=== PATIENT | female | born 1980 | race Caucasian/White ===

== ENCOUNTER 2017-02-07 11:21 | Emergency (ER) | payer OTHER ==
--- NOTE | 2017-02-07 13:14 | DIAGNOSTIC IMAGING REPORT ---
PROCEDURE: XR CHEST 2 VIEW INDICATION: HEMOPTYSIS TECHNIQUE: PA and lateral views. COMPARISON: None. FINDINGS: Lungs are clear. Heart and mediastinum are normal. Thorax is normal. IMPRESSION: 1. Negative chest.
--- NOTE | 2017-02-07 14:16 | DIAGNOSTIC IMAGING REPORT ---
PROCEDURE: CT THORAX WITH CONTRAST INDICATION: Hemoptysis. Smoking history. TECHNIQUE: Only 65 ml of Isovue 300 injected intravenously as there was difficulty with IV site resulted in incomplete injection. No evidence of extravasation. Axial images were obtained of the entire thorax with sagittal and coronal reconstructions. COMPARISON: Comparison is made to chest x-ray earlier today (02/07/2017). FINDINGS: There is mild volume loss at the posterior lung bases. Lungs are otherwise clear. Heart and mediastinum are normal. Mild degenerate change of the thoracic spine. IMPRESSION: 1. Negative CT thorax. No evidence of mass or adenopathy. 2. Findings discussed with Dr. Stephen De La Cruz. All CT scans at this facility use dose modulation, iterative reconstruction, and/or weight-based dosing when appropriate to reduce radiation dose to as low as reasonably achievable.
--- NOTE | 2017-02-07 14:21 | ED CLINICAL REPORT ---
Clinical Report - Physicians/Mid Levels [facility] [address] [place] [address] 02/07/2017 11:23 Patient: TIFFANY ANGELO Time Seen: 11:44. Arrived- By private vehicle. Historian- patient. HISTORY OF PRESENT ILLNESS Chief Complaint: LOWER EXTREMITY PAIN and SWELLING. Severity is described as being moderate. The quality is noted to be burning and similar to prior episodes (tight). This started yesterday and is still present. It was abrupt in onset and has been constant ("tight, like I pulled a muscle"). Symptoms located in the area of the right knee and right leg. The patient has not had redness. No swelling. Patient denies an injury. Similar symptoms previously: Several times. Diagnosis: (thrombophlebitis). REVIEW OF SYSTEMS Last normal menstrual period was 2 weeks ago. No chills, fever, sweats, chest pain or difficulty breathing. No pedal edema or urinary problems. She has had a mild cough productive of blood tinged sputum (today). She has had mild palpitations (she attributes this to anxiety). She has had mild joint pain (for several months - she attributes this to a prior soccer injury. She had this evaluated and it was Xrayed and it was normal.), involving the right knee. She was on Levaquin on january 24 - and she developed a rash and her knee symptoms were attributed to tendonitis attributed to the antibiotic. she had a miscarriage about 2 months ago. All systems otherwise negative, except as recorded above. PAST HISTORY ( PCP - She is to schedule with a new provider next week). Problems: Migraine Headache. Anxiety Reaction. Depression. Thrombophlebitis. Medications: Lexapro Oral. Imitrex Oral. Allergies: Flexeril. Levaquin. SOCIAL HISTORY Current every day heavy tobacco smoker (cigarette)- less than 1 pack per day. No alcohol use or drug use. Residence: [place]. FAMILY HISTORY Diabetes in grandparent; cancer in first-degree relative (mother). brother with primary pulmonary HTN maternal grandfather had a DVT. ADDITIONAL NOTES The nursing notes have been reviewed. PHYSICAL EXAM Vital Signs: 02/07/2017 11:31 BP: 170/80. HR: 107. RR: 18. O2 saturation: 99%. Temp: 98.4 F. Pain level now: 5/10. Have been reviewed. Appearance: Alert. Eyes: Pupils equal, round and reactive to light. ENT: Pharynx normal. Neck: Neck supple. CVS: Normal heart rate and rhythm. Heart sounds normal. Respiratory: No respiratory distress. Breath sounds normal. Abdomen: Soft and nontender. No organomegaly. Back: Normal inspection. Skin: Skin warm and dry. Normal skin color. Normal skin turgor. Extremities: Right knee: mild tenderness. Neurovascular intact distally. No ligamentous laxity present. No joint effusion. No erythema or swelling. Lower extremities exhibit normal ROM. No lower extremity edema. No signs of infection involving the lower extremities. No lower extremity edema. Mild right-sided calf tenderness. Gait: Normal gait. Neuro: No motor deficit. No sensory deficit. LABS, X-RAYS, AND EKG EKG: Rate: 80. Nondiagnostic Q waves in lead V6. Prior EKG unavailable. The study has been independently viewed by me. Chest X-ray: ( Exam(s): XR CHEST 2 VIEW Date of Exam: 02/07/2017 __ PROCEDURE: XR CHEST 2 VIEW INDICATION: HEMOPTYSIS TECHNIQUE: PA and lateral views. COMPARISON: None. FINDINGS: Lungs are clear. Heart and mediastinum are normal. Thorax is normal. IMPRESSION: 1. Negative chest). The X-rays were interpreted by the radiologist and contemporaneously by me. Chest CT: (IMPRESSION: 1. Negative CT thorax. No evidence of mass or adenopathy.). The study was interpreted contemporaneously by me and discussed with the radiologist. Laboratory Tests: UA-Culture if indicated: (KEANU: 02/07/2017 12:05) ( MsgRcvd 02/07/2017 12:24) Final results Test Result Flag Units (Reference) URINE COLOR YELLOW URINE APPEARANCE CLEAR URINE GLUCOSE NEGATIVE (NEGATIVE) URINE BILIRUBIN ICTOTEST NEGATIVE (NEGATIVE) URINE KETONE NEGATIVE (NEGATIVE) URINE SPECIFIC GRAVITY 1.010 (1.010-1.030) URINE PH 6.0 (5.0-8.0) URINE PROTEIN NEGATIVE (NEGATIVE) URINE UROBILINOGEN 0.2 EU/dL (0.2-1.0) URINE NITRITE NEGATIVE (NEGATIVE) URINE BLOOD 1+ (NEGATIVE) URINE LEUK ESTERASE NEGATIVE (NEGATIVE) URINE RBC 3-5 rbc/hpf (0-1) URINE WBC NONE SEEN wbc/hpf (0-1) URINE EPITHELIAL CELLS RARE EPI/hpf (0-5) URINE BACTERIA FEW (1+) (NONE SEEN) URINE COMMENT CULT NOT INDICATED 1+ MUCOUSURINE CULTURES ARE SET-UP BASED ON THE FOLLOWING CRITERIA:POSITIVE NITRITEPOSITIVE LEUKOCYTE ESTERASEGREATER THAN 10 WHITE BLOOD CELLSMODERATE (2+) OR GREATER BACTERIA Serum Qualitative: (KEANU: 02/07/2017 12:05) ( [facility] 02/07/2017 12:27) Final results Test Result Flag Units (Reference) , SERUM NEGATIVE CBC w Diff: (KEANU: 02/07/2017 11:50) ( [facility] 02/07/2017 12:14) Final results Test Result Flag Units (Reference) WHITE BLOOD COUNT 6.9 K/uL (4.5-11.5) RED BLOOD COUNT 4.84 M/uL (4.00-5.20) HEMOGLOBIN 14.5 gm/dL (12.0-16.0) HEMATOCRIT 43.5 % (36.0-46.0) MEAN CELL VOLUME 90 fL (80-100) MEAN CORPUSCULAR HGB 30 pg (26-34) MEAN CORPUSCULAR HGB CONC 33 g/dL (31-37) RED CELL DISTRIBUTION WIDTH 13.1 % (11.6-14.8) PLATELET COUNT 244 K/uL (150-400) NEUTROPHIL % 56.4 % (50-75) LYMPH % 30.8 % (25-40) MONO % 10.4 % (3-14) EOSINOPHIL % 1.9 % (0-4) BASOPHIL % 0.5 % (0-2) PT with INR: (KEANU: 02/07/2017 11:50) ( MsgRcvd 02/07/2017 12:24) Final results Test Result Flag Units (Reference) INR 0.9 (0.8-1.2) Low Intensity Therapy: INR 1.5-2.0 PT range 18.5-23.1Mod.Intensity Therapy: INR 2.0-3.0 PT range 23.1-31.5High Intensity Therapy: INR 2.5-3.5 PT range 27.4-35.5High Intensity Therapy 2: INR 3.0-4.0 PT range 31.5-39.3 APTT 29 SECONDS (24-34) D-DIMER QUANTITATIVE 0.32 ug/mLFEU (0.27-0.52) The primary value of this quantitative assay relates toits negative predictive value (i.e. exclusion) of pulmonaryembolism/deep vein thrombosis/DIC.Elevated levels of d-dimer may also occur with:, age, cancer, inflammation, liver disease,post-op, infection, hematoma, coronary disease, peripheralarteriopathy, bleeding disorders and thrombolytic treatment.Results should be correlated with other clinical andradiological data.Testing Methodology: Latex Immunoassay CMP: (KEANU: 02/07/2017 11:50) ( MsgRcvd 02/07/2017 12:32) Final results Test Result Flag Units (Reference) GLUCOSE 95 mg/dL (70-110) BUN 17 mg/dL (7-18) CREATININE 0.7 mg/dL (0.6-1.3) Estimated GFR >60 mL/min Estimated GFR- >60 mL/min Note: Persistent reduction over 3 months in eGFR<60 mL/min/1.73 m2 defines CKD. Patients with eGFR values>=60 mL/min/1.73 m2 may also have CKD if evidence ofpersistent proteinuria. Additional information may be foundat www.kidney.org. SODIUM 142 mmol/L (136-145) POTASSIUM 3.7 mmol/L (3.5-5.1) CHLORIDE 105 mmol/L (98-107) CARBON DIOXIDE 26 mmol/L (21-32) CALCIUM 9.2 mg/dL (8.5-10.1) TOTAL PROTEIN 7.7 g/dL (6.4-8.2) ALBUMIN 3.9 g/dL (3.3-5.0) BILIRUBIN, TOTAL 0.3 mg/dL (0.0-1.0) ALKALINE PHOSPHATASE 66 U/L (46-116) AST (SGOT) 27 U/L (15-37) ALT (SGPT) 46 U/L (12-78) . PROGRESS AND PROCEDURES Course of Care: Patient is stable. Patient/family counseled. Old medical records ordered. Old records unavailable. Disposition: Discharged. Condition: stable. CLINICAL IMPRESSION Acute right knee pain. Minor hemoptysis INSTRUCTIONS Apply ice for 20 minutes four times a day until better. Don't apply ice directly to skin and don't use while asleep. Warnings: Further evaluation is necessary. GENERAL WARNINGS: Return or contact your physician immediately if your condition worsens or changes unexpectedly, if not improving as expected, or if other problems arise. Your Current Medications: CONTINUE TAKING THE FOLLOWING MEDICATIONS: Imitrex Oral. Lexapro Oral. Follow-up: Follow up with your doctor Friday. Call for an appointment. Follow up with a switchboard operator receptionist- as recommended by your primary care physician- Electrophysiology Nurse Practitioner. Understanding of the discharge instructions verbalized by patient. (Electronically signed by Stephen De La Cruz MD 02/07/2017 16:40)
--- NOTE | 2017-02-07 14:21 | ED CLINICAL REPORT ---
Clinical Report - Physicians/Mid Levels [facility] [address] [place] [address] 02/07/2017 11:23 Patient: TIFFANY ANGELO Time Seen: 11:44. Arrived- By private vehicle. Historian- patient. HISTORY OF PRESENT ILLNESS Chief Complaint: LOWER EXTREMITY PAIN and SWELLING. Severity is described as being moderate. The quality is noted to be burning and similar to prior episodes (tight). This started yesterday and is still present. It was abrupt in onset and has been constant ("tight, like I pulled a muscle"). Symptoms located in the area of the right knee and right leg. The patient has not had redness. No swelling. Patient denies an injury. Similar symptoms previously: Several times. Diagnosis: (thrombophlebitis). REVIEW OF SYSTEMS Last normal menstrual period was 2 weeks ago. No chills, fever, sweats, chest pain or difficulty breathing. No pedal edema or urinary problems. She has had a mild cough productive of blood tinged sputum (today). She has had mild palpitations (she attributes this to anxiety). She has had mild joint pain (for several months - she attributes this to a prior soccer injury. She had this evaluated and it was Xrayed and it was normal.), involving the right knee. She was on Levaquin on january 24 - and she developed a rash and her knee symptoms were attributed to tendonitis attributed to the antibiotic. she had a miscarriage about 2 months ago. All systems otherwise negative, except as recorded above. PAST HISTORY ( PCP - She is to schedule with a new provider next week). Problems: Migraine Headache. Anxiety Reaction. Depression. Thrombophlebitis. Medications: Lexapro Oral. Imitrex Oral. Allergies: Flexeril. Levaquin. SOCIAL HISTORY Current every day heavy tobacco smoker (cigarette)- less than 1 pack per day. No alcohol use or drug use. Residence: [place]. FAMILY HISTORY Diabetes in grandparent; cancer in first-degree relative (mother). brother with primary pulmonary HTN maternal grandfather had a DVT. ADDITIONAL NOTES The nursing notes have been reviewed. PHYSICAL EXAM Vital Signs: 02/07/2017 11:31 BP: 170/80. HR: 107. RR: 18. O2 saturation: 99%. Temp: 98.4 F. Pain level now: 5/10. Have been reviewed. Appearance: Alert. Eyes: Pupils equal, round and reactive to light. ENT: Pharynx normal. Neck: Neck supple. CVS: Normal heart rate and rhythm. Heart sounds normal. Respiratory: No respiratory distress. Breath sounds normal. Abdomen: Soft and nontender. No organomegaly. Back: Normal inspection. Skin: Skin warm and dry. Normal skin color. Normal skin turgor. Extremities: Right knee: mild tenderness. Neurovascular intact distally. No ligamentous laxity present. No joint effusion. No erythema or swelling. Lower extremities exhibit normal ROM. No lower extremity edema. No signs of infection involving the lower extremities. No lower extremity edema. Mild right-sided calf tenderness. Gait: Normal gait. Neuro: No motor deficit. No sensory deficit. LABS, X-RAYS, AND EKG EKG: Rate: 80. Nondiagnostic Q waves in lead V6. Prior EKG unavailable. The study has been independently viewed by me. Chest X-ray: ( Exam(s): XR CHEST 2 VIEW Date of Exam: 02/07/2017 __ PROCEDURE: XR CHEST 2 VIEW INDICATION: HEMOPTYSIS TECHNIQUE: PA and lateral views. COMPARISON: None. FINDINGS: Lungs are clear. Heart and mediastinum are normal. Thorax is normal. IMPRESSION: 1. Negative chest). The X-rays were interpreted by the radiologist and contemporaneously by me. Chest CT: (IMPRESSION: 1. Negative CT thorax. No evidence of mass or adenopathy.). The study was interpreted contemporaneously by me and discussed with the radiologist. Laboratory Tests: UA-Culture if indicated: (KEANU: 02/07/2017 12:05) ( MsgRcvd 02/07/2017 12:24) Final results Test Result Flag Units (Reference) URINE COLOR YELLOW URINE APPEARANCE CLEAR URINE GLUCOSE NEGATIVE (NEGATIVE) URINE BILIRUBIN ICTOTEST NEGATIVE (NEGATIVE) URINE KETONE NEGATIVE (NEGATIVE) URINE SPECIFIC GRAVITY 1.010 (1.010-1.030) URINE PH 6.0 (5.0-8.0) URINE PROTEIN NEGATIVE (NEGATIVE) URINE UROBILINOGEN 0.2 EU/dL (0.2-1.0) URINE NITRITE NEGATIVE (NEGATIVE) URINE BLOOD 1+ (NEGATIVE) URINE LEUK ESTERASE NEGATIVE (NEGATIVE) URINE RBC 3-5 rbc/hpf (0-1) URINE WBC NONE SEEN wbc/hpf (0-1) URINE EPITHELIAL CELLS RARE EPI/hpf (0-5) URINE BACTERIA FEW (1+) (NONE SEEN) URINE COMMENT CULT NOT INDICATED 1+ MUCOUSURINE CULTURES ARE SET-UP BASED ON THE FOLLOWING CRITERIA:POSITIVE NITRITEPOSITIVE LEUKOCYTE ESTERASEGREATER THAN 10 WHITE BLOOD CELLSMODERATE (2+) OR GREATER BACTERIA Serum Qualitative: (KEANU: 02/07/2017 12:05) ( [facility] 02/07/2017 12:27) Final results Test Result Flag Units (Reference) , SERUM NEGATIVE CBC w Diff: (KEANU: 02/07/2017 11:50) ( [facility] 02/07/2017 12:14) Final results Test Result Flag Units (Reference) WHITE BLOOD COUNT 6.9 K/uL (4.5-11.5) RED BLOOD COUNT 4.84 M/uL (4.00-5.20) HEMOGLOBIN 14.5 gm/dL (12.0-16.0) HEMATOCRIT 43.5 % (36.0-46.0) MEAN CELL VOLUME 90 fL (80-100) MEAN CORPUSCULAR HGB 30 pg (26-34) MEAN CORPUSCULAR HGB CONC 33 g/dL (31-37) RED CELL DISTRIBUTION WIDTH 13.1 % (11.6-14.8) PLATELET COUNT 244 K/uL (150-400) NEUTROPHIL % 56.4 % (50-75) LYMPH % 30.8 % (25-40) MONO % 10.4 % (3-14) EOSINOPHIL % 1.9 % (0-4) BASOPHIL % 0.5 % (0-2) PT with INR: (KEANU: 02/07/2017 11:50) ( MsgRcvd 02/07/2017 12:24) Final results Test Result Flag Units (Reference) INR 0.9 (0.8-1.2) Low Intensity Therapy: INR 1.5-2.0 PT range 18.5-23.1Mod.Intensity Therapy: INR 2.0-3.0 PT range 23.1-31.5High Intensity Therapy: INR 2.5-3.5 PT range 27.4-35.5High Intensity Therapy 2: INR 3.0-4.0 PT range 31.5-39.3 APTT 29 SECONDS (24-34) D-DIMER QUANTITATIVE 0.32 ug/mLFEU (0.27-0.52) The primary value of this quantitative assay relates toits negative predictive value (i.e. exclusion) of pulmonaryembolism/deep vein thrombosis/DIC.Elevated levels of d-dimer may also occur with:, age, cancer, inflammation, liver disease,post-op, infection, hematoma, coronary disease, peripheralarteriopathy, bleeding disorders and thrombolytic treatment.Results should be correlated with other clinical andradiological data.Testing Methodology: Latex Immunoassay CMP: (KEANU: 02/07/2017 11:50) ( MsgRcvd 02/07/2017 12:32) Final results Test Result Flag Units (Reference) GLUCOSE 95 mg/dL (70-110) BUN 17 mg/dL (7-18) CREATININE 0.7 mg/dL (0.6-1.3) Estimated GFR >60 mL/min Estimated GFR- >60 mL/min Note: Persistent reduction over 3 months in eGFR<60 mL/min/1.73 m2 defines CKD. Patients with eGFR values>=60 mL/min/1.73 m2 may also have CKD if evidence ofpersistent proteinuria. Additional information may be foundat www.kidney.org. SODIUM 142 mmol/L (136-145) POTASSIUM 3.7 mmol/L (3.5-5.1) CHLORIDE 105 mmol/L (98-107) CARBON DIOXIDE 26 mmol/L (21-32) CALCIUM 9.2 mg/dL (8.5-10.1) TOTAL PROTEIN 7.7 g/dL (6.4-8.2) ALBUMIN 3.9 g/dL (3.3-5.0) BILIRUBIN, TOTAL 0.3 mg/dL (0.0-1.0) ALKALINE PHOSPHATASE 66 U/L (46-116) AST (SGOT) 27 U/L (15-37) ALT (SGPT) 46 U/L (12-78) . PROGRESS AND PROCEDURES Course of Care: Patient is stable. Patient/family counseled. Old medical records ordered. Old records unavailable. Disposition: Discharged. Condition: stable. CLINICAL IMPRESSION Acute right knee pain. Minor hemoptysis INSTRUCTIONS Apply ice for 20 minutes four times a day until better. Don't apply ice directly to skin and don't use while asleep. Warnings: Further evaluation is necessary. GENERAL WARNINGS: Return or contact your physician immediately if your condition worsens or changes unexpectedly, if not improving as expected, or if other problems arise. Your Current Medications: CONTINUE TAKING THE FOLLOWING MEDICATIONS: Imitrex Oral. Lexapro Oral. Follow-up: Follow up with your doctor Friday. Call for an appointment. Follow up with a dentist attendant- as recommended by your primary care physician- Cloth Doffer. Understanding of the discharge instructions verbalized by patient. (Electronically signed by Stephen De La Cruz MD 02/07/2017 16:40)
--- NOTE | 2017-02-07 14:22 | ED ORDER SUMMARY ---
..... Patient: TIFFANY ANGELO OrderSheet [facility] VisitID: [id number] [place] [address] 36y, F Registration Date/Time: 02/07/2017 ORDER SHEET Weight: 104.3 kg (stated) Allergies: Levaquin, Flexeril GENERAL ORDERS: CBC w Diff Urgent (11:41 02/07/2017 Julian DENIS) (Ack 11:46 Nora) (12:00 JBest R.N.) CMP Urgent (11:02/07/2017 Julian DENIS) (Ack 11:46 Nora) (12:00 JBest R.N.) UA-Culture if indicated Urgent (11:02/07/2017 Julian DENIS) (Ack 11:46 Nora) (12:10 JBest R.N.) Serum Qualitative Urgent (11:02/07/2017 Julian DENIS) (Ack 11:46 Nora) (12:10 JBest R.N.) D-Dimer Urgent (11:02/07/2017 Julian DENIS) (Ack 11:46 Nora) (12:00 JBest R.N.) PT with INR Urgent (11:02/07/2017 Julian DENIS) (Ack 11:46 Nora) (12:00 JBest R.N.) PTT Urgent (11:02/07/2017 Julian DENIS) (Ack 11:46 Nora) (12:01 JBest R.N.) EKG - ER Stat (11:02/07/2017 Julian DENIS) (Ack 11:47 Nora) (12:00 JBest R.N.) Chest 2V Urgent (12:59 02/07/2017 Julian DENIS) (Ack 13:00 Nora) (13:06 OSnell) CT Thorax w Cont (No) (See report) Urgent (13:27 02/07/2017 Julian DENIS) (Ack 13:46 Igor) MEDICATION ORDERS: IV FLUIDS: IV Saline Lock (11:02/07/2017 Julian DENIS) (12:01 JBest R.N.) IV NS : initial bolus 500 mL (1000 mL/hr), then 125 mL/hr for 4h (NOW); Urgent (13:28 02/07/2017 Julian DENIS) (13:53 Abiel Bright.Rufus) ORDER SHEET NOTES: [Electronically signed by Stephen De La Cruz MD (16:40 02/07/2017)] [Electronically signed by Karie Hoang R.N. (18:42 02/07/2017)] [Electronically locked/signed by Karie Hoang R.N. (18:42 02/07/2017)]
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
--- NOTE | 2017-02-07 14:22 | ED NURSING NOTES ---
Clinical Report - Nurses [facility] [address] [place] [address] 02/07/2017 11:23 Patient: TIFFANY ANGELO TRIAGE Triage time 11:31. Chief Complaint: RIGHT LOWER EXTREMITY PAIN and REDNESS. 11:37. SEPSIS SCREEN: Sepsis Screen. Negative (no infection suspected/documented). [place]ATA COMA SCORE: [place] Coma Scale: 15- eyes open spontaneously (4); best verbal response- oriented x 4 (5); best motor response- obeys commands (6). --11:42 Karie Hoang R.N. 11:31 02/07/17. BP: 170/80. HR: 107. RR: 18. O2 saturation: 99%. Temp: 98.4 F. Pain level now: 10. --11:42 Karie Hoang R.N. Acuity: LEVEL 3. --12:12 Karie Hoang R.N. Weight: 104.3 kg stated. Height/Length: 66 inches Per Patient. BMI: 37.1. --11:50 Karie Hoang R.N. Medications Imitrex Oral. --11:39 Karie Hoang R.N. Lexapro Oral. --11:48 Karie Hoang R.N. Allergies Levaquin. --11:39 Karie Hoang R.N. Flexeril. --11:39 Karie Hoang R.N. History Arrived by private vehicle. Historian: patient. No injury occurred. This occurred (2 days ago). ( pt had UTI, went to urgent care and was given levaquin which she had an allergic reaction to. She developed a rash and was given prednisone, naproxin, and pepcid. She also started having right knee pain and was told she has tendinitis which urgent care told her was also related to the levaquin. Started coughing this morning around 7:00 and coughed up "blood". Denies chest pain at this time.). 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 SOCIAL HX: Light tobacco smoker- less than 1/2 a pack per day. No alcohol use or drug use. SELF HARM ASSESSMENT: A self harm assessment was performed. The patient answered "no" to the question "Do you have thoughts of harming or killing yourself?". ABUSE ASSESSMENT: Abuse assessment: ("yes") The patient was asked "Do you feel safe in your home?". --11:42 Karie Hoang R.N. PROBLEMS: Thrombophlebitis. --11:38 Karie Hoang R.N. Interventions 11:50 AM. ID band on patient. To room. --12:12 Karie Hoang R.N. PHYSICAL ASSESSMENT GENERAL / NEURO / PSYCH: Oriented X 4. Alert. Appears in no acute distress. EXTREMITIES: Right thigh: tenderness. SKIN: Skin intact. Skin is warm and dry. --11:43 Karie Hoang R.N. NURSING PROGRESS NOTES Patient gowned. Patient identifiers checked. Call light placed in reach. Bed placed in lowest position. Patient ready for evaluation- ED physician notified. --11:46 Karie Hoang R.N. 11:51 02/07/2017 Site #1 started via IV in the right antecubital space with an 20g angiocath; one attempt. Blood drawn: rainbow set. Labeled in the presence of the patient and sent to the lab. Saline lock flushed with 10 mL saline. --12:01 Karie Hoang R.N. 11:57 02/07/17. ( EKG administered by tech and shown to phys.). --11:57 Iqra Villareal Patient ID band checked: patient confirmed. Instructions provided to collect clean catch urine and patient verbalized understanding. Clean catch urine collected; sample sent to lab. Specimen labeled in the presence of the patient. --12:14 Karie Hoang R.N. 13:45. ( Ice pack placed on pt's right knee). --13:53 Ruth Meade R.N. 13:53 02/07/2017 Started bag #1 1000 mL IV Fluids IV NS (Saline); at 1000 mL/hr over 30 minute(s) via site #1 via IV pump. Confirmed 5 rights. --13:53 Ruth Meade R.N. 14:30 02/07/2017 IV Fluids IV NS Discontinued: bag #1 STOPPED upon discharge. Total amount infused: 300 mL. IV patency established. IV site checked: no pain, redness, or swelling. IV flushed thoroughly. --15:06 Karie Hoang R.N. DISPOSITION / DISCHARGE 14:29 02/07/2017 Site #1 removed upon discharge. Bandaid applied. --14:54 Karie Hoang R.N. 14:30. Condition at departure: unchanged. Discharge instructions provided and reviewed with the patient. Treatments reviewed. Reviewed need to stop smoking. Patient verbalized understanding. Written instructions provided in [place]. The patient was discharged by the physician. She was discharged home. She left the Emergency Department ambulatory and via private vehicle. Patient driving. --14:56 Karie Hoang R.N. 14:23 02/07/17. BP: 152/76. HR: 70. RR: 16. O2 saturation: 99%. Temp: 98.6 F. Pain level now: 01/24. --14:56 Karie Hoang R.N. Departure time: 1435. --14:56 Karie Hoang R.N. Locked/Released at 02/07/2017 18:42 by Karie Hoang R.N.
--- NOTE | 2017-02-07 14:22 | ED ORDER SUMMARY ---
..... Patient: TIFFANY ANGELO OrderSheet [facility] VisitID: [id number] [place] [address] 36y, F Registration Date/Time: 02/07/2017 ORDER SHEET Weight: 104.3 kg (stated) Allergies: Levaquin, Flexeril GENERAL ORDERS: CBC w Diff Urgent (11:41 02/07/2017 Julian DENIS) (Ack 11:46 Nora) (12:00 JBest R.N.) CMP Urgent (11:02/07/2017 Julian DENIS) (Ack 11:46 Nora) (12:00 JBest R.N.) UA-Culture if indicated Urgent (11:02/07/2017 Julian DENIS) (Ack 11:46 Nora) (12:10 JBest R.N.) Serum Qualitative Urgent (11:02/07/2017 Julian DENIS) (Ack 11:46 Nora) (12:10 JBest R.N.) D-Dimer Urgent (11:02/07/2017 Julian DENIS) (Ack 11:46 Nora) (12:00 JBest R.N.) PT with INR Urgent (11:02/07/2017 Julian DENIS) (Ack 11:46 Nora) (12:00 JBest R.N.) PTT Urgent (11:02/07/2017 Julian DENIS) (Ack 11:46 Nora) (12:01 JBest R.N.) EKG - ER Stat (11:02/07/2017 Julian DENIS) (Ack 11:47 Nora) (12:00 JBest R.N.) Chest 2V Urgent (12:59 02/07/2017 Julian DENIS) (Ack 13:00 Nora) (13:06 OSnell) CT Thorax w Cont (No) (See report) Urgent (13:27 02/07/2017 Julian DENIS) (Ack 13:46 Igor) MEDICATION ORDERS: IV FLUIDS: IV Saline Lock (11:02/07/2017 Julian DENIS) (12:01 JBest R.N.) IV NS : initial bolus 500 mL (1000 mL/hr), then 125 mL/hr for 4h (NOW); Urgent (13:28 02/07/2017 Julian DENIS) (13:53 Abiel Bright.Rufus) ORDER SHEET NOTES: [Electronically signed by Stephen De La Cruz MD (16:40 02/07/2017)] [Electronically signed by Karie Hoang R.N. (18:42 02/07/2017)] [Electronically locked/signed by Karie Hoang R.N. (18:42 02/07/2017)]
--- NOTE | 2017-02-07 18:43 | ED MED RECONCILIATION SUMMARY ---
Patient: TIFFANY ANGELO Medication Reconciliation Report [facility] VisitID: [id number] [place] [address] 36y, F Registration Date/Time: 02/07/2017 Weight: 104.3 kg Height/Length: 66 in. BMI: 37.1 ALLERGIES: Flexeril, Levaquin The patient's Home Medications are listed below: CONTINUE TAKING THE FOLLOWING MEDICATIONS: Imitrex Oral Lexapro Oral The source(s) of the original Home Medication information: Not obtained. The following Medications were given to the patient in the Emergency Department: IV NS IV Fluids bolus 0, then 1000 mL/hr, administered: 02/07/2017 1:53:00 PM The following Medications were prescribed to the patient: None.
--- NOTE | 2017-02-07 18:43 | ED MAR SUMMARY ---
..... Medication Administration Record [facility] [address] [place] [address] Patient: TIFFANY ANGELO Visit ID: [id number] 36y, F Weight: 104.3 kg Height/Length: 66 in BMI: 37.1 ALLERGIES: Flexeril, Levaquin Start 13:53 02/07/2017 Ruth Meade RLoreNLore, Stop 14:30 02/07/2017 Karie Hoang R.N. Medication Administered: IV NS (SALINE), Dose: IV Fluids over 30 minute(s), Rate: 1000 mL/hr, Dispensed: 1000 mL bag, Site: #1 right AC. Medication Ordered: IV NS : initial bolus 500 mL (1000 mL/hr), then 125 mL/hr for 4h (NOW); Urgent.
--- NOTE | 2017-02-07 18:43 | ED DISCHARGE INSTRUCTIONS ---
Patient: TIFFANY ANGELO General Instructions [facility] VisitID: [id number] [place] [address] 36y, F Registration Date/Time: 02/07/2017 Acute right knee pain. Minor hemoptysis INSTRUCTIONS Apply ice for 20 minutes four times a day until better. Don't apply ice directly to skin and don't use while asleep. Warnings: Further evaluation is necessary. GENERAL WARNINGS: Return or contact your physician immediately if your condition worsens or changes unexpectedly, if not improving as expected, or if other problems arise. Your Current Medications: CONTINUE TAKING THE FOLLOWING MEDICATIONS: Imitrex Oral. Lexapro Oral. Follow-up: Follow up with your doctor Friday. Call for an appointment. Follow up with a radio presenter- as recommended by your primary care physician- Compressed [employer] Tester. Understanding of the discharge instructions verbalized by patient. ADDITIONAL INFORMATION Hemoptysis Hemoptysis is the medical term for "coughing up blood". There are many causes for this including minor illnesses such as bronchitis. Hemoptysis can also be an early sign of more serious illnesses such as a pneumonia, blood clot in the lung, cancer, tuberculosis and pneumonia. Less common causes of hemoptysis can be hard to diagnose in an emergency department or a clinic. Therefore, further testing will be needed if the symptoms continue. Home Care: Avoid exposure to cigarette smoke. Smoke irritates the bronchial passages. Unless you are taking daily aspirin to prevent stroke or heart attack, avoid aspirin and products that contain aspirin. Aspirin affects the clotting system and may make hemoptysis worse. If you have a lung infection, extra fluid will help loosen secretions in the lungs. Ugfa-ujl-ewhawtf cough medicines which contain "dextromethorphan" (such as Robitussin DM) may help reduce coughing. If you were prescribed an antibiotic, take it until it is all gone. Take it even if you are feeling better after only a few days. Follow Up with your doctor or as advised if the bloody cough continues for more than 24 hours. Get Prompt Medical Attention if any of the following occur: Coughing up more than 1 cup of blood within 24 hours Fever over 100.4F (38.0C) for more than three days Trouble breathing, wheezing or pain with breathing Chest pain or chest pressure Feeling very weak or fainting You have been given the following additional information: Hemoptysis (Electronically signed by Stephen De La Cruz MD 02/07/2017 16:40)
--- NOTE | 2017-02-07 18:43 | ED MED RECONCILIATION SUMMARY ---
Patient: TIFFANY ANGELO Medication Reconciliation Report [facility] VisitID: [id number] [place] [address] 36y, F Registration Date/Time: 02/07/2017 Weight: 104.3 kg Height/Length: 66 in. BMI: 37.1 ALLERGIES: Flexeril, Levaquin The patient's Home Medications are listed below: CONTINUE TAKING THE FOLLOWING MEDICATIONS: Imitrex Oral Lexapro Oral The source(s) of the original Home Medication information: Not obtained. The following Medications were given to the patient in the Emergency Department: IV NS IV Fluids bolus 0, then 1000 mL/hr, administered: 02/07/2017 1:53:00 PM The following Medications were prescribed to the patient: None.
--- NOTE | 2017-02-07 18:43 | ED MAR SUMMARY ---
..... Medication Administration Record [facility] [address] [place] [address] Patient: TIFFANY ANGELO Visit ID: [id number] 36y, F Weight: 104.3 kg Height/Length: 66 in BMI: 37.1 ALLERGIES: Flexeril, Levaquin Start 13:53 02/07/2017 Ruth Meade RLoreNLore, Stop 14:30 02/07/2017 Karie Hoang R.N. Medication Administered: IV NS (SALINE), Dose: IV Fluids over 30 minute(s), Rate: 1000 mL/hr, Dispensed: 1000 mL bag, Site: #1 right AC. Medication Ordered: IV NS : initial bolus 500 mL (1000 mL/hr), then 125 mL/hr for 4h (NOW); Urgent.
--- NOTE | 2017-02-07 18:43 | ED DISCHARGE INSTRUCTIONS ---
Patient: TIFFANY ANGELO General Instructions [facility] VisitID: [id number] [place] [address] 36y, F Registration Date/Time: 02/07/2017 Acute right knee pain. Minor hemoptysis INSTRUCTIONS Apply ice for 20 minutes four times a day until better. Don't apply ice directly to skin and don't use while asleep. Warnings: Further evaluation is necessary. GENERAL WARNINGS: Return or contact your physician immediately if your condition worsens or changes unexpectedly, if not improving as expected, or if other problems arise. Your Current Medications: CONTINUE TAKING THE FOLLOWING MEDICATIONS: Imitrex Oral. Lexapro Oral. Follow-up: Follow up with your doctor Friday. Call for an appointment. Follow up with a name plate stamper- as recommended by your primary care physician- [facility]. Understanding of the discharge instructions verbalized by patient. ADDITIONAL INFORMATION Hemoptysis Hemoptysis is the medical term for "coughing up blood". There are many causes for this including minor illnesses such as bronchitis. Hemoptysis can also be an early sign of more serious illnesses such as a pneumonia, blood clot in the lung, cancer, tuberculosis and pneumonia. Less common causes of hemoptysis can be hard to diagnose in an emergency department or a clinic. Therefore, further testing will be needed if the symptoms continue. Home Care: Avoid exposure to cigarette smoke. Smoke irritates the bronchial passages. Unless you are taking daily aspirin to prevent stroke or heart attack, avoid aspirin and products that contain aspirin. Aspirin affects the clotting system and may make hemoptysis worse. If you have a lung infection, extra fluid will help loosen secretions in the lungs. Rupx-dbh-vqbmotz cough medicines which contain "dextromethorphan" (such as Robitussin DM) may help reduce coughing. If you were prescribed an antibiotic, take it until it is all gone. Take it even if you are feeling better after only a few days. Follow Up with your doctor or as advised if the bloody cough continues for more than 24 hours. Get Prompt Medical Attention if any of the following occur: Coughing up more than 1 cup of blood within 24 hours Fever over 100.4F (38.0C) for more than three days Trouble breathing, wheezing or pain with breathing Chest pain or chest pressure Feeling very weak or fainting You have been given the following additional information: Hemoptysis (Electronically signed by Stephen De La Cruz MD 02/07/2017 16:40)
== END 2017-02-07 14:37 | disposition home or self-care (01) ==
LOC: ED SRH 11:21
DX: R04.2 Hemoptysis (principal); M25.561 Pain in right knee; Z79.899 Other long term (current) drug therapy; F17.210 Nicotine dependence, cigarettes, uncomplicated; Z88.1 Allergy status to other antibiotic agents; Z88.8 Allergy status to other drugs, medicaments and biological substances
CPT/HCPCS: 90004; 90100; 91556; 94001; 94060; 95059; 98428